=== PATIENT | female | born 2005 | race African-American/Black ===

== ENCOUNTER 2024-07-12 18:39 | Emergency (ER) | payer OTHER ==
[~2024-07-12] VITALS: Ht 162.6 cm; Wt 53.6 kg
[2024-07-12 18:49] VITALS: TEMP 36.8; O2SAT 98
[2024-07-12] MEDS: METOCLOPRAMIDE HCL 10MG TABLET PO ONE (20:39)
[2024-07-12] MEDS: DIPHENHYDRAMINE 25MG CAPSULE PO ONE (20:39)
[2024-07-12] MEDS: ACETAMINOPHEN 325MG TABLET PO ONE (20:40)
[2024-07-12] MEDS ORDERED: NAPR220C61 MT (21:48)
[2024-07-12 22:07] VITALS: BP 99/60; PULSE 66; RESP 16; O2SAT 100
== END 2024-07-12 22:07 | disposition home or self-care (01) ==
LOC: ER 18:39
DX: R51.9 Headache, unspecified (principal); H53.2 Diplopia
CPT/HCPCS: 99284; 70450; Q0163; J8597

== ENCOUNTER 2025-02-21 17:05 | Emergency (ER) | payer OTHER ==
[~2025-02-21] VITALS: Ht 162.6 cm; Wt 55.0 kg
[~2025-02-21 17:05] MED LIST: NAPR220C61 MT
[2025-02-21 17:24] VITALS: O2SAT 98
[2025-02-21] MEDS: ACETAMINOPHEN 500MG TABLET PO ONE (20:40)
[2025-02-21 21:41] VITALS: BP 110/64; PULSE 75; RESP 20; TEMP 36.7; O2SAT 97
[2025-02-21] MEDS ORDERED: NAPR-1176 MT (21:47)
[2025-02-21] MEDS ORDERED: LIDO-53 TP (21:47)
== END 2025-02-21 22:09 | disposition home or self-care (01) ==
LOC: ER 17:05
DX: M79.672 Pain in left foot (principal); Z79.1 Long term (current) use of non-steroidal anti-inflammatories (NSAID)
CPT/HCPCS: 81025; 73630; 99283; Z7610